=== PATIENT | female | born 1965 | race Caucasian/White ===

== ENCOUNTER 2017-01-26 10:47 | Inpatient (IN) | payer BC ==
[~2017-01-26] VITALS: Ht 157.5 cm; Wt 78.4 kg
[~2017-01-26 10:47] MED LIST: ALEVE220 MG PO; FLONASE 0.05%50 MCG NASAL; IBUPROFEN 600600 M1 PO; NORCO 5-325 TA1 EACH PO; VITAMIN D1000 UNI1 PO
[2017-01-26 11:20] LABS: URINE BILIRUBIN NEGATIVE (Negative); URINE BLOOD 3+ (Negative); URINE COLOR YELLOW; URINE GLUCOSE-RANDOM* NEGATIVE (Negative); URINE KETONES NEGATIVE (Negative); URINE NITRITE NEGATIVE (Negative); URINE PROTEIN (DIPSTICK) NEGATIVE (Negative); URINE SPECIFIC GRAVITY <= 1.005 (1.003-1.035); URINE UROBILINOGEN 0.2 E.U./dl (0.2-1.0)
[2017-01-26 11:36] LABS: BACTERIA 1-9 Few /HPF (None Seen); CASTS None Seen /LPF (None Seen); CRYSTALS None Seen /LPF (None Seen); SQUAMOUS None Seen /LPF (0-3); URINE RBC None Seen /HPF (0-2); URINE WBC None Seen /HPF (0-5)
[2017-01-26 11:41] LABS: ABSOLUTE NEUTROPHILS 6.3 thou/uL (1.4-8.2); BASOPHILS 1.1 % (0.0-2.0); EOSINOPHILS 1.3 % (0.0-3.0); HEMATOCRIT 40.2 % (37.0-47.0); HEMOGLOBIN 13.6 gm/dL (12.0-15.0); LYMPHOCYTES 28.7 % (24.0-44.0); MCH 30.2 pg (26.0-34.0); MCV 88.9 fL (80.0-100.0); MONOCYTES 4.5 % (1.0-8.0); PLATELET COUNT 297 thou/uL (150-400); POLYS 64.4 % (36.0-66.0); RBC 4.52 mil/uL (4.20-5.00); RDW 13.5 % (10.5-14.5); WBC 9.8 thou/uL (4.0-11.0)
[2017-01-26 11:44] LABS: MANUAL DIFF NO
[2017-01-26 11:54] LABS: CALCIUM 9.7 mg/dL (8.5-10.1); CREATININE 0.8 mg/dL (0.6-1.0); POTASSIUM 4.3 mmol/L (3.5-5.1)
[2017-01-26 12:42] LABS: ALBUMIN 4.4 g/dL (3.4-5.0); ALKALINE PHOSPHATASE 85 U/L (46-116); DIRECT BILIRUBIN < 0.1 mg/dL (<0.1-0.3); SGOT 23 U/L (15-37); SGPT 30 U/L (30-65); TOTAL BILIRUBIN 0.9 mg/dL (<0.1-1.0); TOTAL PROTEIN 7.5 g/dL (6.4-8.2)
[2017-01-26 13:24] VITALS: BP 113/64
[2017-01-26 20:00] VITALS: BP 103/67
[2017-01-27 04:00] VITALS: BP 93/62
[2017-01-27 06:31] LABS: ALBUMIN 3.2 g/dL (3.4-5.0); CALCIUM 8.5 mg/dL (8.5-10.1); CREATININE 0.5 mg/dL (0.6-1.0); PHOSPHORUS 4.7 mg/dL (2.5-4.9); POTASSIUM 4.4 mmol/L (3.5-5.1)
[2017-01-27 07:37] VITALS: BP 109/70
[2017-01-27] MEDS ORDERED: HYDROCODON-ACE1 EAC7 PO (09:45)
[2017-01-27] MEDS ORDERED: MIRALAX17 GM PO (09:45)
[2017-01-27] MEDS ORDERED: FLOMAX0.4 MG PO (09:45)
[2017-01-27 10:28] VITALS: BP 109/70
== END 2017-01-27 10:51 | disposition home or self-care (01) | DRG 694 ==
LOC: ER 10:47 → EROBS 12:28 → 4E 13:46 → ENTRNSPT 01-27 10:36 → EDTRNSPTSTS 01-27 10:39 → 4E 01-27 10:51
PROVIDERS: Emergency Medicine; Hospitalist; Physician Assistant
DX: N13.2 Hydronephrosis with renal and ureteral calculous obstruction (principal); Z90.710 Acquired absence of both cervix and uterus; Z88.8 Allergy status to other drugs, medicaments and biological substances; Z88.1 Allergy status to other antibiotic agents; Z88.0 Allergy status to penicillin; Z87.891 Personal history of nicotine dependence
CPT/HCPCS: 10084

== ENCOUNTER 2017-02-01 07:01 | Emergency (ER) | payer BC ==
[~2017-02-01] VITALS: Ht 157.5 cm; Wt 77.1 kg
[~2017-02-01 07:01] MED LIST changes: +FLOMAX0.4 MG PO; +HYDROCODON-ACE1 EAC7 PO; +MIRALAX17 GM PO
[2017-02-01] MEDS ORDERED: VITAMIN B-12500 MCG PO (07:27)
[2017-02-01] MEDS ORDERED: ZYRTEC10 M2 PO (07:27)
[2017-02-01] MEDS ORDERED: PREDNISONE 20 M20 MG PO (08:22)
== END 2017-02-01 08:35 | disposition home or self-care (01) ==
LOC: ER 07:01
DX: R22.0 Localized swelling, mass and lump, head (principal); F10.99 Alcohol use, unspecified with unspecified alcohol-induced disorder; Z90.710 Acquired absence of both cervix and uterus; Z88.1 Allergy status to other antibiotic agents; Z88.0 Allergy status to penicillin; Z87.891 Personal history of nicotine dependence

== ENCOUNTER 2018-10-06 20:37 | Emergency (ER) | payer BC, OTHER ==
[~2018-10-06] VITALS: Ht 157.5 cm; Wt 77.6 kg
[~2018-10-06 20:37] MED LIST changes: +PREDNISONE 20 M20 MG PO; +VITAMIN B-12500 MCG PO; +ZYRTEC10 M2 PO
[2018-10-06] MEDS ORDERED: MIRALAX17 GM PO (23:55)
[2018-10-06] MEDS ORDERED: ZOFRAN4 MG PO (23:55)
[2018-10-06] MEDS ORDERED: PERCOCET 5-3251 EACH PO (23:55)
[2018-10-07 00:42] VITALS: BP 111/64
== END 2018-10-07 00:52 | disposition home or self-care (01) ==
LOC: ER 20:37
DX: S52.591A Other fractures of lower end of right radius, initial encounter for closed fracture (principal); S62.394A Other fracture of fourth metacarpal bone, right hand, initial encounter for closed fracture; Z87.891 Personal history of nicotine dependence; Z91.048 Other nonmedicinal substance allergy status; Z88.0 Allergy status to penicillin; Z90.710 Acquired absence of both cervix and uterus; Z98.890 Other specified postprocedural states; V03.09XA Pedestrian with other conveyance injured in collision with car, pick-up truck or van in nontraffic accident, initial encounter; Y93.89 Activity, other specified; Y92.481 Parking lot as the place of occurrence of the external cause; Y99.8 Other external cause status